=== PATIENT | female | born 2000 | race African-American/Black ===

== ENCOUNTER 2024-02-06 06:58 | Emergency (ER) | payer OTHER ==
[2024-02-06 07:58] LABS: Pregnancy Test - Urine (BHCG) Negative (Negative); Pregu Control Background? CLEAR/WHITE (CLR/WHITE); Pregu Control Bar Appear? YES (CONTROL BAR)
== END 2024-02-06 08:00 | disposition home or self-care (01) ==
LOC: CSHERS 06:58
DX: M54.50 Low back pain, unspecified (principal); L30.4 Erythema intertrigo
CPT/HCPCS: 81025; 99283

== ENCOUNTER 2024-02-19 15:23 | Emergency (ER) | payer OTHER ==
[2024-02-19] MEDS ORDERED: Ketorolac Tromethamine 30 MG (1 mL) VIAL ONE (17:38)
[2024-02-19] MEDS ORDERED: Dexamethasone 10 MG/ML VIAL ONE (17:38)
[2024-02-19] MEDS ORDERED: fentaNYL 50 mcg/mL 1 mL Vial ONE (17:38)
== END 2024-02-19 18:00 | disposition home or self-care (01) ==
LOC: CSHERS 15:23
DX: M54.40 Lumbago with sciatica, unspecified side (principal)
CPT/HCPCS: 96372; J1100; J1885; J3010